=== PATIENT | female | born 1930 | race Caucasian/White ===

== ENCOUNTER 2016-08-09 15:45 | Emergency (ER) | payer MEDICARE, OTHER ==
[~2016-08-09] VITALS: Ht 154.9 cm; Wt 60.3 kg
[2016-08-09] MEDS ORDERED: ATOR40TA (15:57)
[2016-08-09] MEDS ORDERED: SPIR25TA2 (15:57)
[2016-08-09] MEDS ORDERED: LOSA25TA8 (15:57)
[2016-08-09] MEDS ORDERED: CHLO125TA (15:57)
[2016-08-09] MEDS: NS 500 ML IV ONE (17:49)
[2016-08-09 18:30] LABS: BASO % 0.8 % (0.0-1.0); EOS # 0.1 K/mm3 (0.0-0.50); EOS % 1.7 % (0.0-3.0); LARGE UNSTAINED CELL # 0.2 K/mm3 (0.0-0.4); LARGE UNSTAINED CELL % 3.5 % (0.0-4.0); LYMPH # 1.8 K/mm3 (1.5-4.5); LYMPH % 30.8 % (24.0-44.0); MEAN CORPUSCULAR HEMOGLOBIN 37.8 pg (27.0-33.0); MEAN CORPUSCULAR HGB CONC 36.3 g/dl (32.0-36.5); MEAN CORPUSCULAR VOLUME 104.1 fl (80.0-96.0); MONO # 0.3 K/mm3 (0.0-0.8); MONO % 5.5 % (0.0-5.0); NEUTROPHILS # 3.3 K/mm3 (1.8-7.7); NEUTROPHILS % 57.7 % (36.0-66.0); PLATELET COUNT, AUTOMATED 132 k/mm3 (150-450); RED CELL DISTRIBUTION WIDTH 15.1 % (11.5-14.5); WHITE BLOOD COUNT 5.8 K/mm3 (4.0-10.0)
[2016-08-09 18:39] LABS: ANION GAP 10 MEQ/L (8-16); BLOOD UREA NITROGEN 29 MG/DL (7-18); CALCIUM LEVEL 8.2 MG/DL (8.8-10.2); CARBON DIOXIDE LEVEL 27 MEQ/L (21-32); CHLORIDE LEVEL 104 MEQ/L (98-107); CREATININE FOR GFR 1.49 MG/DL (0.55-1.02); GLOMERULAR FILTRATION RATE 35.5 (>32); GLUCOSE, FASTING 79 MG/DL (83-110); POTASSIUM SERUM 3.9 MEQ/L (3.5-5.1); SODIUM LEVEL 141 MEQ/L (136-145); T UPTAKE 33 % (30-39); THYROXINE (T4) 7.9 UG/DL (4.5-12.0)
[2016-08-09 19:48] VITALS: BP 115/54
--- NOTE | 2016-08-10 07:03 | REP ---
CHEST, TWO VIEWS: COMPARISON: 05/30/2015. There is no evidence of acute infiltrate. No pleural effusion is seen. The heart is normal in size. The mediastinal silhouette is unremarkable. The visualized osseous structures are intact. There is some calcification of the thoracic aorta. There are degenerative changes of the spine. IMPRESSION: No acute pulmonary disease. Signed by Shaka Horta MD 08/10/2016 04:33 P
--- NOTE | 2016-08-11 08:35 | ECGEPIP ---
Stationary ECG Study 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
== END 2016-08-09 20:13 | disposition home or self-care (01) ==
LOC: M ED 16:58
DX: I95.1 Orthostatic hypotension (principal); E86.0 Dehydration; R06.02 Shortness of breath; I12.9 Hypertensive chronic kidney disease with stage 1 through stage 4 chronic kidney disease, or unspecified chronic kidney disease; E78.5 Hyperlipidemia, unspecified; N18.3 Chronic kidney disease, stage 3 (moderate); E55.9 Vitamin D deficiency, unspecified; I35.0 Nonrheumatic aortic (valve) stenosis; Z88.7 Allergy status to serum and vaccine; Z79.899 Other long term (current) drug therapy

== ENCOUNTER → 2016-09-07 | Outpatient (REF) | payer MEDICARE, OTHER ==
[~2016-09-07] MED LIST: ATOR40TA; CHLO125TA; LOSA25TA8; SPIR25TA2
[2016-09-07 12:53] LABS: MEAN CORPUSCULAR HEMOGLOBIN 35.8 pg (27.0-33.0); MEAN CORPUSCULAR HGB CONC 33.2 g/dl (32.0-36.5); MEAN CORPUSCULAR VOLUME 107.7 fl (80.0-96.0); RED CELL DISTRIBUTION WIDTH 15.4 % (11.5-14.5); WHITE BLOOD COUNT 5.7 K/mm3 (4.0-10.0)
[2016-09-07 13:01] LABS: CALCIUM LEVEL 8.5 MG/DL (8.8-10.2); CREATININE FOR GFR 1.23 MG/DL (0.55-1.02); GLOMERULAR FILTRATION RATE 44.2 (>32); POTASSIUM SERUM 4.1 MEQ/L (3.5-5.1)
== END ==
LOC: M SFHCPLAZ 08:12
PROVIDERS: ATTEND Family Medicine
DX: N18.3 Chronic kidney disease, stage 3 (moderate) (principal); I11.9 Hypertensive heart disease without heart failure

== ENCOUNTER → 2017-02-21 | Outpatient (REF) | payer MEDICARE, OTHER ==
[~2017-02-21] MED LIST changes: -ATOR40TA; +ATOR40TA75
[2017-02-21 11:51] LABS: MEAN CORPUSCULAR HEMOGLOBIN 34.6 pg (27.0-33.0); MEAN CORPUSCULAR HGB CONC 32.2 g/dl (32.0-36.5); MEAN CORPUSCULAR VOLUME 107.6 fl (80.0-96.0); PLATELET COUNT, AUTOMATED 117 10^3/uL (150-450); RED CELL DISTRIBUTION WIDTH 15.4 % (11.5-14.5); WHITE BLOOD COUNT 4.7 10^3/uL (4.0-10.0)
[2017-02-21 12:09] LABS: ALBUMIN 3.8 GM/DL (3.2-5.2); ALBUMIN/GLOBULIN RATIO 1.31 (1.00-1.93); ALKALINE PHOSPHATASE 78 U/L (45-117); ALT/SGPT 18 U/L (12-78); ANION GAP 9 MEQ/L (8-16); AST/SGOT 15 U/L (7-37); BILIRUBIN,TOTAL 0.7 MG/DL (0.2-1.0); BLOOD UREA NITROGEN 22 MG/DL (7-18); CALCIUM LEVEL 9.1 MG/DL (8.8-10.2); CARBON DIOXIDE LEVEL 29 MEQ/L (21-32); CHLORIDE LEVEL 106 MEQ/L (98-107); CHOLESTEROL LEVEL 93 MG/DL (<200); CREATININE FOR GFR 1.17 MG/DL (0.55-1.02); GLOMERULAR FILTRATION RATE 46.8 (>32); GLUCOSE, FASTING 110 MG/DL (83-110); POTASSIUM SERUM 4.7 MEQ/L (3.5-5.1); SODIUM LEVEL 144 MEQ/L (136-145); TOTAL PROTEIN 6.7 GM/DL (6.4-8.2); TRIGLYCERIDES LEVEL 64 MG/DL (<150)
[2017-02-23 00:09] LABS: FREE KAPPA LIGHT CHAINS SERUM 26.6 mg/L (3.3-19.4); KAPPA/LAMBDA RATIO SERUM 1.4 (0.26-1.65)
[2017-02-26 10:56] LABS: ALBUMIN 4.05 GM/DL (3.29-5.55); ALBUMIN % 60.4 % (55.8-66.1)
== END ==
LOC: M SFHCPLAZ 09:52
PROVIDERS: ATTEND Family Medicine
DX: N18.3 Chronic kidney disease, stage 3 (moderate) (principal); D53.9 Nutritional anemia, unspecified; E78.2 Mixed hyperlipidemia

== ENCOUNTER → 2017-03-01 | Outpatient (REF) | payer MEDICARE, OTHER ==
[2017-03-01 19:35] LABS: RETIC HEMOGLOBIN EQUIVALENT 39.3 pg (24-36); RETICULOCYTE % 1.7 % (0.5-1.5)
[2017-03-01 20:06] LABS: PERCENT SATURATION 29.6 % (13.2-45.0)
== END ==
LOC: M SFHCPLAZ 10:48
PROVIDERS: ATTEND Family Medicine
DX: I11.9 Hypertensive heart disease without heart failure (principal); N18.3 Chronic kidney disease, stage 3 (moderate); D63.1 Anemia in chronic kidney disease; R73.01 Impaired fasting glucose; I35.0 Nonrheumatic aortic (valve) stenosis; Z23 Encounter for immunization
CPT/HCPCS: 82728; 83550; 85046; 90662; G0008; G0463

== ENCOUNTER → 2017-07-05 | Outpatient (REF) | payer MEDICARE, OTHER ==
[2017-07-05 16:03] LABS: HEMATOCRIT 35.4 % (36.0-47.0); HEMOGLOBIN 11.3 g/dl (12.0-16.0); MEAN CORPUSCULAR HGB CONC 31.9 g/dl (32.0-36.5); MEAN CORPUSCULAR VOLUME 106.6 fl (80.0-96.0); PLATELET COUNT, AUTOMATED 110 10^3/uL (150-450); RED BLOOD COUNT 3.32 10^6/uL (4.00-5.40); RED CELL DISTRIBUTION WIDTH 16.2 % (11.5-14.5); WHITE BLOOD COUNT 6.1 10^3/uL (4.0-10.0)
[2017-07-05 16:36] LABS: ALBUMIN 3.9 GM/DL (3.2-5.2); ALBUMIN/GLOBULIN RATIO 1.39 (1.00-1.93); ALKALINE PHOSPHATASE 73 U/L (45-117); ALT/SGPT 21 U/L (12-78); ANION GAP 7 MEQ/L (8-16); AST/SGOT 16 U/L (7-37); BILIRUBIN,TOTAL 0.8 MG/DL (0.2-1.0); BLOOD UREA NITROGEN 26 MG/DL (7-18); CALCIUM LEVEL 8.9 MG/DL (8.8-10.2); CARBON DIOXIDE LEVEL 28 MEQ/L (21-32); CHLORIDE LEVEL 110 MEQ/L (98-107); CREATININE FOR GFR 1.03 MG/DL (0.55-1.30); GLOMERULAR FILTRATION RATE 54.2 (>32); GLUCOSE, FASTING 79 MG/DL (70-100); POTASSIUM SERUM 4.5 MEQ/L (3.5-5.1); SODIUM LEVEL 145 MEQ/L (136-145); TOTAL PROTEIN 6.7 GM/DL (6.4-8.2)
== END ==
LOC: M SFHCPLAZ 10:46
DX: N18.3 Chronic kidney disease, stage 3 (moderate) (principal); D63.1 Anemia in chronic kidney disease
CPT/HCPCS: 80053

== ENCOUNTER → 2018-07-11 | Outpatient (REF) | payer MEDICARE, OTHER ==
[~2018-07-11] MED LIST changes: +LOSA25TA14; -LOSA25TA8; +SPIR-10; -SPIR25TA2
[2018-07-11 12:00] LABS: HEMATOCRIT 34.8 % (36.0-47.0); HEMOGLOBIN 11.2 g/dl (12.0-15.5); MEAN CORPUSCULAR HEMOGLOBIN 35.2 pg (27.0-33.0); MEAN CORPUSCULAR HGB CONC 32.2 g/dl (32.0-36.5); MEAN CORPUSCULAR VOLUME 109.4 fl (80.0-96.0); PLATELET COUNT, AUTOMATED 107 10^3/uL (150-450); RED BLOOD COUNT 3.18 10^6/uL (4.00-5.40); WHITE BLOOD COUNT 5.1 10^3/uL (4.0-10.0)
[2018-07-11 12:31] LABS: ALBUMIN 3.8 GM/DL (3.2-5.2); BILIRUBIN,TOTAL 0.8 MG/DL (0.2-1.0); CALCIUM LEVEL 8.9 MG/DL (8.8-10.2); CHOLESTEROL RISK RATIO 1.593 (<5); CREATININE FOR GFR 1.18 MG/DL (0.55-1.30); GLOMERULAR FILTRATION RATE 46.2 (>32); PERCENT SATURATION 25.4 % (13.2-45.0); POTASSIUM SERUM 4.3 MEQ/L (3.5-5.1); TOTAL PROTEIN 6.3 GM/DL (6.4-8.2)
== END ==
LOC: M SFHCPLAZ 09:57
PROVIDERS: ATTEND Family Medicine
DX: I35.0 Nonrheumatic aortic (valve) stenosis (principal); N18.3 Chronic kidney disease, stage 3 (moderate); D63.1 Anemia in chronic kidney disease; I11.9 Hypertensive heart disease without heart failure; E78.2 Mixed hyperlipidemia

== ENCOUNTER 2019-06-26 10:35 | Inpatient (IN) | payer MEDICARE, OTHER ==
[~2019-06-26] VITALS: Ht 154.9 cm; Wt 58.9 kg
[~2019-06-26 10:35] MED LIST changes: -ATOR40TA75; +ATOR40TA75 PO
--- NOTE | 2019-06-26 11:36 | REP ---
Portable chest, 11:14 a.m., single AP view with the patient upright: Comparison is 08/09/2016. There is cardiomegaly as an interval change. There is slightly increased density in the lung bases bilaterally, likely bibasilar atelectasis. There is focal density medially in the right upper lobe, unchanged from 01/18 2005, likely chronic pleuroparenchymal scarring. The the Impression: Bibasilar atelectasis. Cardiomegaly as an interval change. Chronic pleural parenchymal scarring medially in the right upper lobe. Electronically Signed by Sahka Talavera MD 06/26/2019 11:28 A
[2019-06-26 11:52] LABS: BASO % 0.9 % (0.0-1.0); EOS % 0.5 % (0.0-3.0); HEMOGLOBIN 10.7 g/dl (12.0-15.5); LYMPH # 2.1 10^3/uL (1.5-5.0); LYMPH % 48.7 % (24.0-44.0); MEAN CORPUSCULAR HEMOGLOBIN 34.5 pg (27.0-33.0); MEAN CORPUSCULAR HGB CONC 31.5 g/dl (32.0-36.5); MEAN CORPUSCULAR VOLUME 109.7 fl (80.0-96.0); MONO # 0.4 10^3/uL (0.0-0.8); MONO % 8.7 % (0.0-5.0); NEUTROPHILS # 1.7 10^3/uL (1.5-8.5); NEUTROPHILS % 40.7 % (36.0-66.0); PLATELET COUNT, AUTOMATED 116 10^3/uL (150-450); WHITE BLOOD COUNT 4.3 10^3/uL (4.0-10.0)
[2019-06-26 12:21] LABS: ALBUMIN 3.7 GM/DL (3.2-5.2); BILIRUBIN,DIRECT 0.3 MG/DL (0.0-0.2); BILIRUBIN,TOTAL 1.1 MG/DL (0.2-1.0); CALCIUM LEVEL 8.7 MG/DL (8.8-10.2); CK-MB VALUE MASS 1.9 NG/ML (<3.6); CREATININE FOR GFR 1.29 MG/DL (0.55-1.30); FREE T4 1.01 NG/DL (0.76-1.46); GLOMERULAR FILTRATION RATE 41.6 (>32); MB/CK RELATIVE INDEX 4.13 (< OR =4); POTASSIUM SERUM 4.5 MEQ/L (3.5-5.1); THYROID STIMULATING HORMONE 3.66 uIU/ML (0.358-3.740); TOTAL PROTEIN 6.7 GM/DL (6.4-8.2); TROPONIN I 0.1 NG/ML (< 0.10)
[2019-06-26 12:35] LABS: ERYTHROCYTE SEDIMENTATION RATE 50 mm/hr (0-30)
[2019-06-26] MEDS ORDERED: ISOVUE-370 76% 100ML VIAL (Q9967) As Ordered ONE (14:19)
--- NOTE | 2019-06-26 15:27 | REP ---
CT pulmonary angiogram: With IV contrast. History: Chest pain. Comparison studies: No comparison study. Contrast dose: 75 mL of Isovue [address] technique: Helical scanning is acquired and overlapping 1.5 mm and contiguous 3 mm axial images are reformatted. In addition, maximum intensity projection and multiplanar re-formation images are generated in sagittal and coronal imaging projections. CT pulmonary angiographic findings: There is good opacification of the pulmonary arterial tree. There is no filling defect or vessel cutoff seen to suggest pulmonary embolism. There is faint opacification of the aorta without evidence of aneurysm or dissection. Vascular calcification is seen. There is some pericardial fluid adjacent to the aortic root. No other evidence of pericardial effusion is seen. Cardiomegaly is observed. There are small bilateral pleural effusions. There is thickening of the interlobular septi in the upper lobes and lower lobes consistent with interstitial edema. There is mild fissural thickening. There is a large hiatal hernia. Visualized upper abdominal structures are unremarkable. Impression: Cardiomegaly with four-chamber dilation. Small bilateral pleural effusions and interstitial edema pattern consistent with CHF. No CT evidence of pulmonary embolus. There is some pericardial fluid adjacent to the ascending aorta. Large hiatal hernia. Electronically Signed by Juvenal Wilkes MD 06/26/2019 03:58 P
[2019-06-26] MEDS ORDERED: FUROSEMIDE 20 MG/2 ML VIAL (J1940) IV ONE (15:30)
--- NOTE | 2019-06-26 15:31 | REP ---
Left lower extremity deep vein duplex ultrasound: The deep veins demonstrate normal compression, normal Doppler color flow and normal Doppler waveforms with respiration and augmentation from the popliteal vein to the common femoral vein. Impression: There is no left lower extremity deep vein thrombus. Electronically Signed by Shaka Talavera MD 06/26/2019 03:22 P
[2019-06-26 15:39] LABS: CK-MB VALUE MASS 1.5 NG/ML (<3.6); MB/CK RELATIVE INDEX 4.29 (< OR =4); TROPONIN I 0.11 NG/ML (< 0.10)
[2019-06-26] MEDS ORDERED: PRES10CA2 PO (16:09)
[2019-06-26] MEDS ORDERED: VITAD1000T PO (16:09)
[2019-06-26] MEDS ORDERED: CYAN100050 PO (16:09)
[2019-06-26 19:04] LABS: CK-MB VALUE MASS 1.5 NG/ML (<3.6); MB/CK RELATIVE INDEX 4.69 (< OR =4); TROPONIN I 0.11 NG/ML (< 0.10)
--- NOTE | 2019-06-26 19:35 | ECGEPIP ---
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
[2019-06-26 19:45] VITALS: BP 102/54
[2019-06-26] MEDS: ATORVASTATIN 20 MG TAB PO SCH (21:22)
[2019-06-26] MEDS: VITAMIN D 1,000 INTERNATIONAL UNITS TABLET PO SCH (21:22)
[2019-06-27] VITALS: BP 118/74
[2019-06-27 04:00] VITALS: BP 104/60
[2019-06-27 04:49] LABS: CALCIUM LEVEL 8.7 MG/DL (8.8-10.2); CREATININE FOR GFR 1.23 MG/DL (0.55-1.30); MAGNESIUM LEVEL 1.8 MG/DL (1.8-2.4); POTASSIUM SERUM 4.1 MEQ/L (3.5-5.1)
--- NOTE | 2019-06-27 07:40 | HPE ---
DATE OF ADMISSION: 06/26/2019 PRIMARY CARE PROVIDER: Dr. Perry CHIEF COMPLAINT: Shortness of breath. HISTORY OF PRESENT ILLNESS: Mrs. Cullen is an 88-year old woman who has a past medical history notable of severe aortic stenosis. In the past, she has declined any type of intervention, feeling that she was too old to have anything done. She also has history of macular degeneration and hyperlipidemia. She is not on very many medications at all. She had previously been on a diuretic, but this had been stopped in the past. She presented today to the hospital with worsening shortness of breath. In the ER department, she underwent chest imaging which indicated that she had some pulmonary edema. In addition, she was experiencing some chest discomfort which she describes as a substernal ache. She has not experienced any heaviness. This substernal chest discomfort is more pronounced with activity than when she is trying to carry things she tells me. In addition, she has had a dry cough, but has not had any fevers. No recent sick contacts. No travel. Unfortunately, three weeks ago, she did lose her of many years and she feels that that may be playing a part in worsening her symptoms. Today, she was noted to have oxygen saturation of 87% on room air while in the ER department. She was treated with IV Lasix 20 mg x1 dose and she is resting rather comfortably at this time in the supine position. She is not needing any supplemental oxygen. Her preliminary EKG showed no significant changes. Preliminary troponin was unremarkable also. She was found to have an elevated NT pro-BNP of 30,000. Her second troponin marker came back slightly elevated at 0.11. ALLERGIES: - INFLUENZA VACCINATION CURRENT HOME MEDICATIONS: - atorvastatin 40 mg at bedtime - cholecalciferol 1000 units at bedtime - vitamin B12 1000 mcg at bedtime - vitamin C, E, copper, lutein and zeaxanthin one capsule at bedtime PAST MEDICAL HISTORY: Notable for macular degeneration, severe aortic stenosis, hyperlipidemia, dysphagia secondary to esophageal stricture. She had an esophagogastroduodenoscopy (EGD) with dilatation in the past under the care of Dr. Medrano. She has history of benign breast tumors which were biopsied on the left side many years ago. SURGICAL HISTORY: Left breast biopsies of benign tumors. SOCIAL HISTORY: The patient is recently . Does not use tobacco or alcohol. She occasionally drinks wine. Her daughter Lisa would be her surrogate medical decision maker. The patient does not have any advanced directives and thus is a full code at this time. FAMILY HISTORY: Notable for cerebral aneurysm rupture on the maternal side. She never knew her father so she does not have recollection of any paternal medical illnesses. REVIEW OF SYSTEMS: She has chronic left lower extremity swelling compared to the right. She has some mild edema in her feet, but has not noticed any worsening edema lately. She has exertional dyspnea. She denies having any orthopnea or any paroxysmal nocturnal dyspnea (PND) like symptoms. She has not had any chest discomfort other than what she experienced today, which scared her into coming to the hospital. The remainder of systems is reviewed with patient and otherwise negative. PHYSICAL EXAMINATION: The patient's temperature is 98, pulse 83, respirations 14, blood pressure 121/61, oxygen saturation 98% on room air, but did dip to 87%. General: The patient is alert and oriented times three. She appears comfortable. She is not exhibiting any labored breathing. Her daughter is at the bedside. Head is atraumatic. Pupils are symmetric and reactive to light. Oropharynx is clear. There is no erythema or thrush. Neck is supple. Lung sounds are present bilaterally without any audible wheezing or rhonchi. I do hear rales, primarily affecting the left side. Heart: S1, S2. She has a grade 3/6 systolic murmur consistent with aortic stenosis. Her abdomen is nontender, nondistended. She has active bowel sounds. No palpable organomegaly. Extremities: Without any significant cyanosis, clubbing. She has some mild bipedal edema. Neurologic Exam: Cranial nerves II-XII appeared to be grossly intact without any focal neurologic deficits. Her strength appears to be symmetric without any visible weakness. Gait is not tested. LABS: Sodium 139, potassium 4.5, chloride 106, bicarbonate 23, BUN 28, creatinine 1.29, AST 20, ALT 18, CPK 46 and 35 respectively on recheck, troponin 0.10 and bumped up slightly to 0.11 and NT pro BNP is 30,000. Lipase is 121. TSH is 3.66. Free T4 is 1. White count is 4.3, hemoglobin 10.7, hematocrit 34, MCV 109, and platelet count is 116,000. ESR was 50. IMAGING STUDIES: Left lower extremity venous ultrasound showed no evidence of deep venous thrombosis. Chest x-ray showed bibasilar atelectasis, cardiomegaly as an interval change, chronic lower parenchymal scarring in the right upper lobe. CTA of the chest showed cardiomegaly with four chamber dilatation, small bilateral pleural effusion, interstitial edema pattern consistent with congestive heart failure, no CT evidence for pulmonary embolism. There is some pericardial effusion adjacent to the ascending aorta. Large hiatal hernia. IMPRESSION: 1. Acute congestive heart failure unspecified. Patient will be admitted to an inpatient bed given her hypoxia noted in the ER department. Imaging studies as well as labs are indicative of congestive heart failure which is decompensated. She has received IV Lasix in the ER department. I am going to continue with that for an additional two doses so we do not over diurese her. Will check electrolytes in the morning. Will repeat her troponin level, although there is no rise in her CPK so likely this is just a troponin leak associated with her heart failure indicating a type 2 ischemic events. I do not think she warrants any heparin therapy. She does indicate to me that she bleeds easily and has quite a bit of bruising even from taking aspirin so she would not be interested in being on a blood thinner at this time anyhow. 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 In the past, she has declined any type of surgical intervention and we did discuss transcatheter aortic valve replacement (TAVR), but she is not interested in that at this time either. 2. Hyperlipidemia. She will be continued on her statin. 3. Macular degeneration. She may be resumed on her vitamins that she is taking. The patient will be a full code until her wishes can be clarified once she thinks of them. The patient will be placed on thromboembolic deterrent stockings (TEDS) only as she has significant bruising and bleeding associated with anticoagulants. ANDREW
[2019-06-27 08:00] VITALS: BP 124/74
[2019-06-27] MEDS: FUROSEMIDE 40 MG/4 ML VIAL (J1940) IV SCH (09:54)
[2019-06-27 12:00] VITALS: BP 107/56
--- NOTE | 2019-06-27 15:05 | ECHO ---
DATE OF PROCEDURE: 06/27/2019 REFERRING PHYSICIAN: Dr. Schmitz INDICATION: Cardiac murmur, unspecified. HEIGHT: 155 cm WEIGHT: 60 kg 2D MEASUREMENTS: Aortic annulus: 2.1 cm Aortic root: 2.8 cm Left atrium: 4.0 cm Left ventricle diastole: 4.7 cm Ventricular septum: 1.20 cm Posterior wall: 1.19 cm Inferior vena cava: 2.1 cm with reduced respiratory variation DOPPLER MEASUREMENTS: Critical severe aortic stenosis, mild aortic regurgitation. Aortic valve area 0.49 cm squared. Aortic stenosis dimensional index 0.14. Peak aortic valve velocity 525 meters per second Peak aortic valve gradient 110 mmHg Mean aortic valve gradient 66 mmHg LVOT velocity 66.6 cm/s LVOT/VTI 16.7 cm Mild mitral regurgitation. No mitral stenosis. Mitral E velocity 91.3 cm/sec Mitral A velocity 108 cm/sec Mitral deceleration time: 151 ms Severe tricuspid regurgitation suggestive of very severe elevation of estimated right ventricle systolic pressure (94-99 mmHg). Trace pulmonic regurgitation. Pulmonary acceleration time 49 milliseconds. MITRAL ANNULAR TISSUE DOPPLER: E prime septal: 2.9 cm/s E prime lateral: 3.5 cm/s DESCRIPTION: Rhythm was sinus. Image quality was adequate. This was a 2D, M-mode, color flow Doppler and pulse wave Doppler examination and included mitral annular tissue Doppler. CONCLUSIONS: 1. Severe focal thickening and focal calcific deposits of 3-cusp aortic valve with marked reduction of aortic cusp mobility. Critical severe aortic stenosis with peak transvalvular aortic velocity of 5.25 meters per second, aortic valve area 0.49 cm/squared (continuity equation, VTI), dimensionless index of 0.14, and mean aortic valve gradient 66 mmHg. Mild aortic regurgitation. 2. Normal left ventricle in diastolic dimension and LV wall thickness. Severe global hypokinesis of the left ventricle with severe reduction in overall LV systolic function, LVEF 20% by visual estimate. Type 1 spontaneous echo contrast seen in the distal half of the left ventricle cavity, no left ventricle thrombus. Grade 1 LV diastolic dysfunction (impaired relaxation filling pattern). 3. Suggestive of very severe elevation of estimated right ventricle systolic pressure (94 - 99 mmHg). Severe tricuspid regurgitation. 4. Inferior vena cava plethora suggestive of elevated central venous pressure in the range of 15 - 20 mmHg. 5. Moderate mitral annular calcification. Mild mitral regurgitation. No mitral stenosis. 6. Mild left atrial dilatation. 7. Normal right ventricle size and systolic function. 8. Tiny pericardial effusion. ADDITIONAL COMMENTS AND RECOMMENDATIONS: If this patient wishes to have everything possible done, then suggest transfer to a tertiary care center where she can be considered for aortic valve replacement or TAVR. If this patient does not wish to undergo aortic valve replacement or TAVR, then her prognosis is anticipated to be fairly poor and it may be worthwhile having a discussion about do not resuscitate status with the patient.
--- NOTE | 2019-06-27 16:36 | IPNPDOC ---
Subjective Date Seen The patient was seen on 06/27/19. Subjective Chief Complaint/HPI Mrs. Cullen reports that she is breathing a little better than she was on admission. It was the worsening dyspnea that finally brought her into the hospital. We had a long conversation (see below) about her advanced directives and wishes. General: Reports: Normal Appetite Pulmonary: Reports: Dyspnea (improving), Cough Cardiovascular: Reports: Palpitations; Denies: Edema Genitourinary: Denies: Dysuria Psych: Reports: Mood Normal; Denies: Memory Issues Objective Physical Examination General Exam: Positive: Alert (she is resting in bed and very conversant when we enter the room), Cooperative, No Acute Distress, Other (she is fairly thin and her rings no longer fit well) Eye Exam: Positive: Conjunctiva & lids normal; Negative: Sclera icteric ENT Exam: Positive: Mucous membr. moist/pink Neck Exam: Positive: Supple, JVD (past the angle of her jaw); Negative: Lymphadenopathy Chest Exam: Positive: Clear to auscultation, Diminished Heart Exam: Positive: Rate Normal, Normal S1, Normal S2, Murmurs (2-3/6 crescendo decrescendo murmur noted over the aortic listening post with radiations down the precordium and up into the carotids) Abdomen Exam: Positive: Normal bowel sounds, Soft; Negative: Tenderness Extremity Exam: Negative: Edema Neuro Exam: Positive: Normal Speech Psych Exam: Positive: Mental status NL, Mood NL, Memory Intact, Oriented x 3 Assessment /Plan Problems (1) Critical aortic valve stenosis Status: Chronic Response to Treatment: Worse Discussed With: Patient Problem Text: She needs to decide if she wants this acted on or not. Right sure she isn't sure and her uncertainty is effectively making the decision to her. 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 Last Edited By: John Santos MD on Jun 28, 2019 12:34 am Status: Chronic Response to Treatment: Worse Problem Text: She has an acute exacerbation of her CHF. She is being very carefully diuresed, because if we reduce her preload too fast she may get light headed syncopal or have ischemic events. I had a long conversation with her about addressing this condition. At this point it seems like she is at [address] and either needs to decide she wants treatment for her valvular disease which realistically would probably be TAVR, or whether she wants palliative care. With a crossectional area of 0.45cm in her aortic valve, she doesn't have a lot of time to make up her decision if she wants a procedural option on the table. She would like some time to think about this and discuss it with her daughter. We will resume the discission tomorrow. (3) Elevated troponin Status: Acute Response to Treatment: Stable Problem Specific Plan: Repeat Labs Problem Text: She doesn't seem to have ongoing ischemia. This is likely from her acute heart failure, but given the fact that her of 68 years ~3 weeks ago it is possible that this is takotsubo cardiomyopathy too. (4) Grief Status: Acute Response to Treatment: Stable Discussed With: Nurse, Patient Problem Text: Her about three weeks ago she, understandably, is missing him. I spent some time empathizing with her she told me stories about him and some of her last days with him. (5) Macrocytic anemia Status: Chronic Problem Specific Plan: Repeat Labs Problem Text: I ordered a vitamin B12 and folate testing to see whether we may be able to improve her anemia little with proper building blocks. (6) Hyperlipidemia Status: Chronic Discussed With: Patient Problem Text: Her life expectancy is now shorter than the expected benefit window. We'll stop her atorvastatin. (7) Macular degeneration Status: Chronic Problem Text: Continue her eyedrops as prescribed by ophthalmology. Plan/VTE VTE Prophylaxis Ordered?: No VS, I&O, 24H, [place] Vital Signs/I&O Vital Signs Date Time Temp Pulse Resp B/P (MAP) Pulse Ox O2 Delivery O2 Flow Rate FiO2 06/27/19 12:00 99.4 84 16 107/56 (73) 98 Room Air I&O- Last 24 Hours up to 6 AM 06/27/19 05:59 Intake Total 0 ml Output Total 0 ml Balance 0 ml Laboratory Data 24H LABS Laboratory Tests 2 06/26/19 18:22: Total Creatine Kinase 32, Creatine Kinase MB 1.5, Creatine Kinase MB Relative In dex 4.69H, Troponin I 0.11H 06/27/19 03:56: Anion Gap 7L, Glomerular Filtration Rate 44.0, Calcium Level 8.7L, Magnesium Level 1.8 CBC/BMP Laboratory Tests 06/27/19 03:56 John Santos MD Jun 27, 2019 4:36 pm
[2019-06-27 20:00] VITALS: BP 116/76
[2019-06-27] MEDS: VITAMIN D 1,000 INTERNATIONAL UNITS TABLET PO SCH (20:46)
[2019-06-27] MEDS: ATORVASTATIN 20 MG TAB PO SCH (20:46)
[2019-06-28] VITALS: BP 114/66
[2019-06-28 06:30] LABS: HEMOGLOBIN 10.2 g/dl (12.0-15.5); MEAN CORPUSCULAR HEMOGLOBIN 34.1 pg (27.0-33.0); MEAN CORPUSCULAR HGB CONC 31.9 g/dl (32.0-36.5); PLATELET COUNT, AUTOMATED 102 10^3/uL (150-450); RED BLOOD COUNT 2.99 10^6/uL (4.00-5.40); WHITE BLOOD COUNT 4.2 10^3/uL (4.0-10.0)
[2019-06-28 06:49] LABS: ALBUMIN 3.1 GM/DL (3.2-5.2); BILIRUBIN,TOTAL 1.2 MG/DL (0.2-1.0); CALCIUM LEVEL 8.4 MG/DL (8.8-10.2); CREATININE FOR GFR 1.21 MG/DL (0.55-1.30); GLOMERULAR FILTRATION RATE 44.8 (>32); POTASSIUM SERUM 3.9 MEQ/L (3.5-5.1); TOTAL PROTEIN 6.2 GM/DL (6.4-8.2)
[2019-06-28 08:00] VITALS: BP 106/60
[2019-06-28] MEDS: FUROSEMIDE 40 MG/4 ML VIAL (J1940) IV SCH (10:14)
[2019-06-28 12:00] VITALS: BP 104/56
--- NOTE | 2019-06-28 14:48 | IPNPDOC ---
Subjective Date Seen The patient was seen on 06/28/19. Subjective Chief Complaint/HPI Geovanna talked with her daughter's over the evening and made some decisions regarding advanced directives. She has a partially filled out MOLST form for me to review with her. She reports she is slightly less short of breath than she was yesterday. She is concerned that she has not had a bowel movement in 2-3 days. She is requesting some medications to make sure she does not become seriously constipated. Nursing reports that she is generally doing well clinically. General: Reports: Normal Appetite Constitutional: Denies: Chills, Fever Pulmonary: Reports: Dyspnea (slightly improved); Denies: Cough Cardiovascular: Denies: Chest Pain, Palpitations Gastrointestinal: Reports: Constipation; Denies: Nausea, Vomiting Psych: Reports: Mood Normal Objective Physical Examination General Exam: Positive: Alert (she is resting in bed and very conversant when we enter the room), Cooperative, No Acute Distress, Other (she is fairly thin and her rings no longer fit well) Eye Exam: Positive: Conjunctiva & lids normal; Negative: Sclera icteric ENT Exam: Positive: Mucous membr. moist/pink Neck Exam: Positive: Supple, JVD (past the angle of her jaw); Negative: Lymphadenopathy Chest Exam: Positive: Clear to auscultation, Diminished Heart Exam: Positive: Rate Normal, Normal S1, Normal S2, Murmurs (2-3/6 crescendo decrescendo murmur noted over the aortic listening post with radiations down the precordium and up into the carotids) Abdomen Exam: Positive: Normal bowel sounds, Soft; Negative: Tenderness Extremity Exam: Negative: Edema Neuro Exam: Positive: Normal Speech Psych Exam: Positive: Mental status NL, Mood NL, Memory Intact, Oriented x 3 Assessment /Plan Problems (1) Critical aortic valve stenosis Status: Chronic Response to Treatment: Worse Discussed With: Patient Problem Text: She would like to meet with a etl data architect to discuss further options including the possibility of TAVR. She is requesting to meet someone from the [facility] cardiology group because they also are connected with [place] where she understands the procedure would need to be done. I consulted Dr. Varma who graciously agreed to see the patient. 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 Last Edited By: John Santos MD on Jun 28, 2019 00:34 Status: Chronic Response to Treatment: Worse Problem Text: She has an acute exacerbation of her CHF. She is being very carefully diuresed, because if we reduce her preload too fast she may get light headed syncopal or have ischemic events. Symptoms are improving slightly. We'll continue to gently diurese with IV Lasix. She is not on a protocol but this is ordered and daily basis based on how she is feeling and her I/O from the previous day. (3) Constipation Problem Text: I add Senokot-S to her regimen to be taken at night if she is getting constipated. We'll monitor for efficacy of this change. (4) Elevated troponin Status: Acute Response to Treatment: Stable Problem Specific Plan: Repeat Labs Problem Text: She doesn't seem to have ongoing ischemia. This is likely from her acute heart failure, but given the fact that her of 68 years ~3 weeks ago it is possible that this is takotsubo cardiomyopathy too. (5) Grief Status: Acute Response to Treatment: Stable Discussed With: Nurse, Patient Problem Text: Her about three weeks ago she, understandably, is missing him. I spent some time empathizing with her she told me stories about him and some of her last days with him. (6) Macrocytic anemia Status: Chronic Problem Specific Plan: Repeat Labs Problem Text: I ordered a vitamin B12 and folate testing to see whether we may be able to improve her anemia little with proper building blocks. (7) Hyperlipidemia Status: Chronic Discussed With: Patient Problem Text: Her life expectancy is now shorter than the expected benefit wind ow. Atorvastatin was stopped. (8) Macular degeneration Status: Chronic Problem Text: Continue her eyedrops as prescribed by ophthalmology. Plan/VTE VTE Prophylaxis Ordered?: Yes (Lovenox) VS, I&O, 24H, [place] Vital Signs/I&O Vital Signs Date Time Temp Pulse Resp B/P (MAP) Pulse Ox O2 Delivery O2 Flow Rate FiO2 06/28/19 00:00 98.1 80 18 114/66 (82) 94 Room Air I&O- Last 24 Hours up to 6 AM 06/28/19 06:00 Intake Total 720 ml Output Total 800 ml Balance -80 ml Laboratory Data 24H LABS Laboratory Tests 2 06/28/19 06:07: Nucleated Red Blood Cells % (auto) 0.0, Anion Gap 6L, Glomerular Filtration Rate 44.8, Calcium Level 8.4L, Magnesium Level 2.0, Total Bilirubin 1.2H, Aspartate Amino Transf (AST/SGOT) 14, Alanine Aminotransferase (ALT/SGPT) 13, Alkaline Phosphatase 73, Total Protein 6.2L, Albumin 3.1L, Albumin/Globulin Ratio 1.00 CBC/BMP Laboratory Tests 06/28/19 06:07 John Santos MD Jun 28, 2019 14:48
[2019-06-28 16:00] VITALS: BP 108/57
[2019-06-28] MEDS ORDERED: SENOKOT S TAB PO PRN (16:15)
[2019-06-28] MEDS ORDERED: SIMETHICONE 80 MG CHEW TAB PO PRN (16:15)
[2019-06-28] MEDS ORDERED: FUROSEMIDE 20 MG/2 ML VIAL (J1940) IV ONE (17:00)
[2019-06-28 20:00] VITALS: BP 121/64
[2019-06-28] MEDS: VITAMIN D 1,000 INTERNATIONAL UNITS TABLET PO SCH (20:58)
[2019-06-29] VITALS (7 sets, daily range): BP systolic 102–139; BP diastolic 56–71
[2019-06-29 05:48] LABS: HEMATOCRIT 31.2 % (36.0-47.0); HEMOGLOBIN 10.1 g/dl (12.0-15.5); MEAN CORPUSCULAR HEMOGLOBIN 34.5 pg (27.0-33.0); MEAN CORPUSCULAR HGB CONC 32.4 g/dl (32.0-36.5); MEAN CORPUSCULAR VOLUME 106.5 fl (80.0-96.0); RED BLOOD COUNT 2.93 10^6/uL (4.00-5.40); WHITE BLOOD COUNT 4.2 10^3/uL (4.0-10.0)
[2019-06-29 05:54] LABS: PLATELET COUNT, AUTOMATED 96 10^3/uL (150-450)
[2019-06-29 06:14] LABS: CALCIUM LEVEL 8.1 MG/DL (8.8-10.2); CREATININE FOR GFR 1.35 MG/DL (0.55-1.30); GLOMERULAR FILTRATION RATE 39.5 (>32); POTASSIUM SERUM 3.7 MEQ/L (3.5-5.1)
[2019-06-29] MEDS ORDERED: SLF 3 ML SYR IV PRN (07:00)
[2019-06-29 09:38] LABS: FOLATE 11.4 NG/ML (>5.4)
[2019-06-29] MEDS: ENOXAPARIN 30 MG/0.3 ML SYR (J1650) SC SCH (09:50)
--- NOTE | 2019-06-29 10:05 | IPNPDOC ---
Subjective Date Seen The patient was seen on 06/29/19. Subjective Chief Complaint/HPI Pt this morning without new concerns. She was more interested in talking with me over some issues with the title of her car since her has passed than her reason for admission. She states that she really feels pretty good. Dr Varma has been in to see her this morning and has recommended TAVR, she is unsure of what she would like to do. General: Denies: Fatigue Constitutional: Denies: Chills, Fever Pulmonary: Denies: Dyspnea, Cough Cardiovascular: Denies: Chest Pain, Palpitations Gastrointestinal: Denies: Nausea, Vomiting, Diarrhea Neurological: Denies: Weakness Psych: Denies: Mood Normal Objective Physical Examination General Exam: Positive: Alert (she is resting in bed and very conversant when we enter the room), Cooperative, No Acute Distress ENT Exam: Positive: Mucous membr. moist/pink Neck Exam: Positive: Supple Chest Exam: Positive: Clear to auscultation, Diminished Heart Exam: Positive: Rate Normal, Normal S1, Normal S2, Murmurs (2-3/6 crescendo decrescendo murmur noted over the aortic listening post with radiations down the precordium and up into the carotids) Abdomen Exam: Positive: Normal bowel sounds, Soft; Negative: Tenderness Extremity Exam: Negative: Edema Neuro Exam: Positive: Normal Speech Psych Exam: Positive: Mental status NL, Mood NL, Memory Intact, Oriented x 3 Assessment /Plan Problems (1) Critical aortic valve stenosis Status: Chronic Response to Treatment: Worse Discussed With: Patient Problem Specific Plan: Consult Specialist Problem Text: 06/28 Await further input from pt after meeting with Cardio. 06/27 She would like to meet with a trade specialist to discuss further options including the possibility of TAVR. She is requesting to meet someone from the [facility] cardiology group because they also are connected with [facility] where she understands the procedure would need to be done. I consulted Dr. Varma who graciously agreed to see the patient. 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 Last Edited By: John Santos MD on Jun 28, 2019 00:34 Status: Resolved Response to Treatment: Worse Problem Text: She has an acute exacerbation of her CHF. She is being very care fully diuresed, because if we reduce her preload too fast she may get light headed syncopal or have ischemic events. Symptoms are improving slightly. We'll continue to gently diurese with IV Lasix. She is not on a protocol but this is ordered and daily basis based on how she is feeling and her I/O from the previous day. (3) Constipation Problem Text: I add Senokot-S to her regimen to be taken at night if she is getting constipated. We'll monitor for efficacy of this change. (4) Elevated troponin Status: Acute Response to Treatment: Stable Problem Specific Plan: Repeat Labs Problem Text: She doesn't seem to have ongoing ischemia. This is likely from her acute heart failure, but given the fact that her of 68 years ~3 weeks ago it is possible that this is takotsubo cardiomyopathy too. (5) Grief Status: Acute Response to Treatment: Stable Discussed With: Nurse, Patient Problem Text: Her about three weeks ago she, understandably, is missing him. I spent some time empathizing with her she told me stories about him and some of her last days with him. (6) Macrocytic anemia Status: Chronic Problem Specific Plan: Repeat Labs Problem Text: I ordered a vitamin B12 and folate testing to see whether we may be able to improve her anemia little with proper building blocks. (7) Hyperlipidemia Status: Chronic Discussed With: Patient Problem Text: Her life expectancy is now shorter than the expected benefit window. Atorvastatin was stopped. (8) Macular degeneration Status: Chronic Problem Text: Continue her eyedrops as prescribed by ophthalmology. (9) Severe pulmonary arterial systolic hypertension (10) CKD (chronic kidney disease) stage 3, GFR 30-59 ml/min Status: Chronic Problem Text: baseline cr 1.2/GFR 45 /16 cr 1.4 Plan/VTE VTE Prophylaxis Ordered?: Yes (Lovenox) VS, I&O, 24H, Fishbone Vital Signs/I&O Vital Signs Date Time Temp Pulse Resp B/P (MAP) Pulse Ox O2 Delivery O2 Flow Rate FiO2 06/29/19 04:00 97.2 65 17 102/69 (80) 94 Room Air I&O- Last 24 Hours up to 6 AM 06/29/19 06:00 Intake Total 240 ml Output Total 1250 ml Balance -1010 ml Laboratory Data 24H LABS Laboratory Tests 2 06/29/19 05:34: Nucleated Red Blood Cells % (auto) 0.0, Immature Platelet Fraction 6.1, Anion Gap 9, Glomerular Filtration Rate 39.5, Calcium Level 8.1L, Vitamin B12 Level 1688H, Folate 11.4 CBC/BMP Laboratory Tests 06/29/19 05:34 LIONEL MACDONALD PA-C Jun 29, 2019 10:05 Jerardo Johnson M.D. Jun 29, 2019 16:50
--- NOTE | 2019-06-29 12:30 | CR ---
DATE OF CONSULTATION: 06/29/2019 REASON FOR CONSULTATION: Critical aortic stenosis. HISTORY OF PRESENT ILLNESS: Ms. Cullen is an 88-year-old female with a pertinent past medical history of known aortic stenosis, hypertension, chronic kidney disease who presented to our emergency room on 06/26/2019 for shortness of breath where she was having difficulty breathing with ambulation and chest discomfort in the substernal area. She was unable to describe the discomfort in her chest very well but states that the discomfort will go away after a few minutes of rest. In the emergency room, she had imaging, which showed that she had some pulmonary edema, and her oxygen saturation was 87% on room air, she states that she is on oxygen at home. While she was admitted, she was given gentle diuresis and an echocardiogram was done. Echocardiogram was ready by Dr. Fuentes and showed severe focal thickening and focal deposits of three-cusp aortic valve and an aortic valve area of 0.49 cm/squared and a mean aortic valve gradient of 66 mmHg. She has a visual estimated left ventricular ejection fraction was 20% and a grade 1 left ventricular diastolic dysfunction, as well as severe right ventricle systolic pressure 94 to 99 mmHg with severe tricuspid regurgitation and elevated central venous pressure from 15 to 20 mmHg. When the patient was asked in the past if she wanted further intervention for the aortic stenosis, she refused, but at this current time because of her exacerbation of symptoms and because of her admission, we believe her congestive heart failure (CHF) was possibly secondary to a worsening aortic stenosis, so cardiology was called for recommendations. PAST MEDICAL HISTORY: 1. Hypertension. 2. Aortic stenosis. In 2016, the mean gradient was 36. 3. Hyperlipidemia. 4. Chronic kidney disease stage III. 5. Macular degeneration. 6. Esophageal spasms with esophagitis. 7. Osteopenia. 8. History of gastric ulcers. 9. Gout. PAST SURGICAL HISTORY: 1. Bilateral cataract surgery. 2. Left breast cyst removal, benign. FAMILY HISTORY: Reviewed. Mother with a history of stroke, heart disease. Daughter with thyroid disease. Paternal grandmother with heart disease. SOCIAL HISTORY: Nonsmoker. Alcohol history: Denies. Living at home with her daughter but is able to do her activities of daily living with no problems until recently. . 3 weeks prior. ALLERGIES: INFLUENZA, CIPROFLOXACIN, ORAL B12 PILLS. REVIEW OF SYSTEMS: CARDIOLOGY: Positive for chest discomfort, shortness of breath. Denies palpitations or lower extremity edema. GASTROINTESTINAL: Denies any abdominal pain, nausea, vomiting, constipation. PSYCHIATRIC: Bereavement but denies any suicidal ideation. Currently managing relatively well since her 's , she states. PULMONOLOGY: Admits to shortness of breath with ambulation. Admits to dry cough but not sputum production. GENERAL: Denies any fevers, chills, or night sweats. Admits to weight loss since 's . PHYSICAL EXAMINATION: VITAL SIGNS: Temperature 97.2, pulse 65 and regular. Respirations 17. Blood pressure 102/69 (80). Pulse oximetry 94% on room air. GENERAL: This is a very pleasant 88-year-old female who does not appear in any acute distress. Answering questions. Not using any accessory muscles. Speaking in complete sentences. HEENT: Atraumatic, normocephalic. Pupils are equal, round and reactive. Moist mucous membranes. No jugular venous distention (JVD). It measures about 4 to 5 mm above the sternal notch. No lymphadenopathy. CARDIOVASCULAR: Crescendo-decrescendo murmur appreciated in the right sternal border and radiating up to the carotids but not to the apex. Grade 2/6. Weak pulsatile tardus appreciated, which is consistent with severe aortic stenosis. LUNGS: Surprisingly, clear to auscultation bilaterally. No audible wheezing, rhonchi or rales, especially at the bases bilaterally. ABDOMEN: Soft, nontender. EXTREMITIES: No calf tenderness. No lower extremity edema. LABORATORY DATA: WBC 4.2, hemoglobin 10.1, hematocrit 31.2, platelets 96. Chemistry: Sodium 142, potassium 3.7, chloride 106, carbon dioxide 27, BUN 31, creatinine 1.35, fasting glucose 96, calcium 8.1. IMAGING: Chest x-ray from 06/26/2019 shows cardiomegaly with chronic pleural parenchymal scarring medial in the right upper lobe and bilateral atelectasis. CT angio of the chest from 06/26/2019 shows cardiomegaly with four-chamber dilatation, small bilateral pleural effusion and interstitial edema consistent with congestive heart failure (CHF), no pulmonary embolism. Some pericardial fluid adjacent to the ascending aorta with large hiatal hernia. Vascular ultrasound of the left lower extremity negative for deep vein thrombosis (DVT). Echocardiogram from 06/27/2019, summary, official report is on the chart. It shows severe aortic stenosis with a mean aortic valve gradient of 66 mmHg, as well as aortic valve area of 0.4 cm/squared with a left ventricular ejection fraction of 20% with a type 1 LV diastolic dysfunction. Severe elevation of right ventricular systolic measuring 94 to 99 mmHg and elevated central venous pressure in 15 to 20 mmHg with a tiny pericardial effusion. ASSESSMENT: This is an 88-year-old female with a known history of aortic stenosis who refused a TAVR procedure in the past, who presented to our emergency room with shortness of breath. Most recent echocardiogram from this admission shows critically severe aortic stenosis and decompensated heart failure. IMPRESSION: 1. Critically severe aortic stenosis with severe pulmonary hypertension and elevated central venous pressure with a tiny pericardial effusion. 2. Congestive heart failure (CHF), currently compensated with an ejection fraction of 20%. 3. Grade 1 LV diastolic dysfunction. 4. Hyperlipidemia. 5. Hypertension. 6. Bereavement. 7. Macrocytic anemia. 8. Macular degeneration. PLAN: Clinically, the patient looks compensated from congestive heart failure (CHF). She has gentle diuresis since she got admitted. She does not appear to be fluid overloaded and is resting comfortably in bed with no oxygen. No additional cardiac medications and standing diuretics placed because of the severe aortic stenosis and left ventricular diastolic dysfunction, so no standing furosemide will be placed at this time. For her severe aortic stenosis, based on how significant this stenosis is and with the pulmonary hypertension, the patient will need a valve replacement. We discussed with her about her options, such as open heart surgery for valve replacement versus a TAVR. We think that she is a better candidate for a TAVR, but we cannot make that final assessment unless she agrees to have a replacement. We discussed risks, benefits of having the TAVR procedure, as well as mortality outcome with this. We have asked the patient to make a decision and we will reassess her tomorrow to see if she would like to be transferred. At this current time, no additional cardiac medications will started and we will continue to follow along with the patient while she is admitted.
[2019-06-29] MEDS: SLF 3 ML SYR IV SCH ×2 (15:06→22:00)
[2019-06-29] MEDS: VITAMIN D 1,000 INTERNATIONAL UNITS TABLET PO SCH (20:50)
[2019-06-30 04:00] VITALS: BP 102/65
[2019-06-30 05:24] LABS: BASO % 0.5 % (0.0-1.0); EOS % 0.7 % (0.0-3.0); HEMATOCRIT 31.4 % (36.0-47.0); LYMPH # 2.2 10^3/uL (1.5-5.0); MEAN CORPUSCULAR HEMOGLOBIN 34.2 pg (27.0-33.0); MEAN CORPUSCULAR HGB CONC 31.8 g/dl (32.0-36.5); MEAN CORPUSCULAR VOLUME 107.5 fl (80.0-96.0); MONO # 0.4 10^3/uL (0.0-0.8); NEUTROPHILS # 1.5 10^3/uL (1.5-8.5); NEUTROPHILS % 36.6 % (36.0-66.0); PLATELET COUNT, AUTOMATED 104 10^3/uL (150-450); RED BLOOD COUNT 2.92 10^6/uL (4.00-5.40); WHITE BLOOD COUNT 4.2 10^3/uL (4.0-10.0)
[2019-06-30 05:34] LABS: INR 1.25; PROTHROMBIN TIME 15.5 SECONDS (11.8-14.0)
[2019-06-30 05:35] LABS: PARTIAL THROMBOPLASTIN TIME 30.7 SECONDS (25.0-38.4)
[2019-06-30] MEDS: SLF 3 ML SYR IV SCH (05:43)
[2019-06-30 05:50] LABS: ALBUMIN 3.1 GM/DL (3.2-5.2); CALCIUM LEVEL 8.2 MG/DL (8.8-10.2); CREATININE FOR GFR 1.09 MG/DL (0.55-1.30); GLOMERULAR FILTRATION RATE 50.5 (>32); PHOSPHORUS LEVEL 3.2 MG/DL (2.5-4.9); POTASSIUM SERUM 3.9 MEQ/L (3.5-5.1)
[2019-06-30 08:00] VITALS: BP 99/55
[2019-06-30] MEDS: ENOXAPARIN 30 MG/0.3 ML SYR (J1650) SC SCH (08:14)
--- NOTE | 2019-06-30 09:27 | IPN ---
DATE OF SERVICE: 06/30/2019 SUBJECTIVE: Mrs. Cullen was seen and examined this morning during bedside rounds with Dr. Varma with me. She states that she slept relatively well last night. She had no symptoms. There was no telemetry event or nursing event reported. She has no complaints today. She is agreeable to being transferred to [facility] for the procedure and her daughter is flying in from [place], [place], this morning. She continues to be asymptomatic. PHYSICAL EXAMINATION: VITAL SIGNS: Temperature 97.6, pulse 80 and regular. Respirations 16. Blood pressure 102/65 (77). Pulse oximetry 97% on room air. GENERAL: This is a very pleasant 88-year-old elderly female who appears stated age who does not appear in acute distress. Appropriately answering questions. HEENT: Atraumatic, normocephalic. Pupils equal, round and reactive. No jugular venous distention (JVD). No lymphadenopathy. CARDIOVASCULAR: Crescendo-decrescendo murmur with no closing sound on the right sternal border radiating to carotids, grade 2/6, with pulsus parvus et tardus in the radial bilaterally consistent with severe aortic stenosis. LUNGS: Clear to auscultate bilaterally. No audible wheezing, rhonchi or rales. ABDOMEN: Soft, nontender. EXTREMITIES: No calf tenderness or lower extremity edema. LABORATORY DATA: WBC 4.2, hemoglobin 10.0, hematocrit 31.4, platelets 104. Chemistry: Sodium 143, potassium 3.9, chloride 108, carbon dioxide 27, BUN 26, creatinine 1.09, fasting glucose 88, calcium 8.2, phosphorus 3.2, magnesium 2.0, albumin 3.1. IMAGING: No new imaging. ASSESSMENT: This is a very pleasant, 88-year-old female with a known history of aortic stenosis who presented to [facility] for shortness of breath. Most recent echocardiogram from admission showed critically severe aortic stenosis and severe pulmonary hypertension. IMPRESSION: 1. Critically severe aortic stenosis with severe pulmonary hypertension and elevated central venous pressure with a tiny pericardial effusion. 2. Congestive heart failure (CHF), ejection fraction of 20%, currently compensated. 3. Grade 1 LV diastolic dysfunction. 4. Hyperlipidemia. 5. Hypertension. 6. Bereavement. 7. Macrocytic anemia. 8. History of macular degeneration. PLAN: She continues to look clinically stable. After a discussion with the risks and benefits of a valve replacement, the patient is agreeable to transfer to [facility]. Dr. Henning, cardiology, was called, who was agreeable to accept the patient. No additional cardiac medications will be needed. The patient is stable for transfer. We will be awaiting for a bed.
== END 2019-06-30 09:32 | disposition short-term general hospital (02) | DRG 291 ==
LOC: M ED 10:35 → M ED INP 16:43 → ENRESERVTM 18:12 → ENRESERVDT 18:12 → M PCU 19:45
PROVIDERS: ADMIT Internal Medicine; ATTEND Family Medicine
DX: I13.0 Hypertensive heart and chronic kidney disease with heart failure and stage 1 through stage 4 chronic kidney disease, or unspecified chronic kidney disease (principal); I50.43 Acute on chronic combined systolic (congestive) and diastolic (congestive) heart failure; I35.0 Nonrheumatic aortic (valve) stenosis; H35.30 Unspecified macular degeneration; E78.5 Hyperlipidemia, unspecified; I27.20 Pulmonary hypertension, unspecified; Z88.7 Allergy status to serum and vaccine; Z79.899 Other long term (current) drug therapy; R09.02 Hypoxemia; R06.00 Dyspnea, unspecified; R79.89 Other specified abnormal findings of blood chemistry; F43.21 Adjustment disorder with depressed mood; D53.9 Nutritional anemia, unspecified; K59.00 Constipation, unspecified; N18.3 Chronic kidney disease, stage 3 (moderate); M81.0 Age-related osteoporosis without current pathological fracture; Z98.41 Cataract extraction status, right eye; Z98.42 Cataract extraction status, left eye; Z88.1 Allergy status to other antibiotic agents; Z88.8 Allergy status to other drugs, medicaments and biological substances